=== PATIENT | male | born 1975 | race African-American/Black ===

== ENCOUNTER 2024-12-07 12:14 | Emergency (ER) | payer SELFPAY ==
[~2024-12-07] VITALS: Ht 167.6 cm; Wt 64.0 kg
[2024-12-07 12:16] VITALS: BP 106/74; PULSE 62; RESP 18; TEMP 36.3; O2SAT 100
[2024-12-07] MEDS: SODIUM CHLORIDE 0.9% 1,000 ML IV ONE (13:04)
== END 2024-12-07 13:25 | disposition left against medical advice (07) ==
LOC: ER 12:14
DX: R53.1 Weakness (principal); E86.0 Dehydration
CPT/HCPCS: 71045; 93005; 99283; J7030